=== PATIENT | female | born 1965 | race African-American/Black ===

== ENCOUNTER 2016-11-26 14:35 | Outpatient (CLI) | payer MEDICARE ==
[~2016-11-26 14:35] MED LIST: Acetaminophen PO; BUPR1PAT3 TP; CIPR500T94 PO; CLON0.5T PO; DICL100G7 TP; DOCU-27 PO; FENT1PAT13 TD; GABA-586 PO; HYDR-971 PO; LEVO500T38 PO; MELO-150 PO; MELO15TA6 PO; OMEP20TA63 PO; OXYC-323 PO; OXYC5TAB PO; Oxycodone Hcl/Acetaminophen PO; POLY17PO5 PO; PREG75CA PO; Sennosides/Docusate Sodium PO; TIZA4TAB PO; ZOLP5TAB PO; [UNRECOGNIZED DRUG - OTHER]
[2016-11-26] MEDS ORDERED: GADOBUTROL 7.5 MMOL/7.5 ML VIAL IV ONE (16:45)
[2016-11-26 16:55] VITALS: BP 122/86
--- NOTE | 2016-11-26 17:16 | RAD ---
Examination: MRI of the pelvis without and with IV contrast HISTORY History of osteomyelitis, diabetic ulcer COMPARISON 10/14/2015. TECHNIQUE Multiplanar, multisequence MR imaging of the pelvis were performed without and with IV contrast. IV contrast given was 7.5 cc of Gadavist. Findings : There is a large ulcer/sinus tract identified in the mid gluteal region with T2 signal extending along the ulcer and abutting the distal portion of the sacrum with mild increased edema identified in the resected sacrum, particularly in the right this is slightly increased compared to prior exam.On the postcontrast images there is mild enhancement about the distal portion of the ulcer abutting the sacrum, similar to prior exam. There is another ulcer/sinus tract identified in the left posterior proximal thigh region extending towards the left ischium. There is decreased T1 signal identified in the left ischium with mild high T2 signal within left ischium extending into the left posterior acetabulum. There is a increased T2 signal identified along the ulcer. On the post-contrast images there is mild enhancement identified along the ulcer up to the level of the left ischium. The lower sacrum and coccyx are not visualized probably prior surgical changes or chronic destruction. There is a large nonenhancing complex appearing soft tissue with peripheral enhancement identified just lateral to the greater trochanter on the right similar to prior exam. Lower quadrant ostomy changes identified. Surgical clips identified in the lower pelvis region. IMPRESSION 1. Low T1 signal with corresponding high T2 signal identified in the left ischium including the posterior left acetabulum grossly appears similar to prior exam likely known osteomyelitis, unchanged compared to prior exam 2015. An ulcer/sinus tract is seen extending from the skin to the left ischium similar to prior exam. 2. Large mid gluteal ulcer/sinus tract identified extending towards the sacrum. Compared to the prior exam there is minimal increased T2 signal around the sacral ulcer with mild edema in the sacrum. Recommend triphasic bone scan for further evaluation of the sacrum including the pelvis to include the left ischium to exclude osteomyelitis. 3. Large peripherally enhancing soft tissue identified lateral to the right greater trochanter is unchanged likely chronic infection or inflammation or chronic organized hematoma or chronic bursitis grossly similar to prior exam. Electronically signed by: Rigo Alves (Nov 26, 2016 17:15:22)
== END 2016-11-26 17:20 | disposition home or self-care (01) ==
LOC: MRI 14:35
PROVIDERS: ATTEND Preventive Medicine Undersea and Hyperbaric Medicine
DX: S31.000A Unspecified open wound of lower back and pelvis without penetration into retroperitoneum, initial encounter (principal)
CPT/HCPCS: 72197; A9585

== ENCOUNTER 2016-12-27 04:06 | Emergency (ER) | payer MEDICARE ==
[~2016-12-27] VITALS: Ht 104.1 cm; Wt 74.8 kg
[2016-12-27 04:15] VITALS: BP 141/101
[2016-12-27] MEDS ORDERED: HYDR25TA PO (04:38)
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
[2016-12-27] MEDS ORDERED: LORAZEPAM 1 MG TABLET. PO ONE (05:00)
[2016-12-27] MEDS ORDERED: HYDROMORPHONE 2 MG/ML VIAL. IM ONE (05:00)
== END 2016-12-27 05:31 | disposition home or self-care (01) ==
LOC: ER 04:06
DX: F41.0 Panic disorder [episodic paroxysmal anxiety] (principal); G89.29 Other chronic pain; E11.9 Type 2 diabetes mellitus without complications; E78.00 Pure hypercholesterolemia, unspecified; G82.20 Paraplegia, unspecified; Z91.041 Radiographic dye allergy status; Z88.8 Allergy status to other drugs, medicaments and biological substances
CPT/HCPCS: 96372; 99284; J1170; 99283-25

== ENCOUNTER 2016-12-30 11:14 | Emergency (ER) | payer MEDICARE ==
[~2016-12-30 11:14] MED LIST changes: +HYDR25TA PO
[2016-12-30 11:35] VITALS: BP 125/66
[2016-12-30] MEDS ORDERED: LORAZEPAM 1 MG TABLET. PO ONE (12:45)
[2016-12-30] MEDS ORDERED: LORA0.5T96 PO (13:23)
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
== END 2016-12-30 13:29 | disposition home or self-care (01) ==
LOC: ER 11:14
DX: F41.9 Anxiety disorder, unspecified (principal); Z88.5 Allergy status to narcotic agent; Z88.8 Allergy status to other drugs, medicaments and biological substances; Z91.041 Radiographic dye allergy status
CPT/HCPCS: 99284

== ENCOUNTER → 2017-01-01 | Outpatient (CLI) | payer MEDICARE ==
[2016-12-30 11:35] VITALS: BP 125/66
[~2017-01-01] MED LIST changes: +LORA0.5T96 PO
== END | disposition home or self-care (01) ==
LOC: PMGWOUND 10:01
PROVIDERS: ATTEND Emergency Medicine Undersea and Hyperbaric Medicine
DX: L89.154 Pressure ulcer of sacral region, stage 4 (principal); L89.324 Pressure ulcer of left buttock, stage 4; E11.9 Type 2 diabetes mellitus without complications; M19.90 Unspecified osteoarthritis, unspecified site; F41.9 Anxiety disorder, unspecified; G82.20 Paraplegia, unspecified; F17.210 Nicotine dependence, cigarettes, uncomplicated; Z72.89 Other problems related to lifestyle; Z89.612 Acquired absence of left leg above knee; Z89.611 Acquired absence of right leg above knee; Z86.14 Personal history of Methicillin resistant Staphylococcus aureus infection
CPT/HCPCS: 99214; G0463

== ENCOUNTER → 2017-01-29 | Outpatient (CLI) | payer MEDICARE ==
[2016-12-30 11:35] VITALS: BP 125/66
[~2017-01-29] MED LIST changes: +POLY17PO29 PO; -POLY17PO5 PO
== END | disposition home or self-care (01) ==
LOC: PMGWOUND 10:48
PROVIDERS: ATTEND Preventive Medicine Undersea and Hyperbaric Medicine
DX: L89.224 Pressure ulcer of left hip, stage 4 (principal); L89.154 Pressure ulcer of sacral region, stage 4; E11.69 Type 2 diabetes mellitus with other specified complication; F41.9 Anxiety disorder, unspecified; M19.90 Unspecified osteoarthritis, unspecified site; E78.00 Pure hypercholesterolemia, unspecified; Z72.89 Other problems related to lifestyle; F17.210 Nicotine dependence, cigarettes, uncomplicated; Z86.14 Personal history of Methicillin resistant Staphylococcus aureus infection; M86.68 Other chronic osteomyelitis, other site; Z89.612 Acquired absence of left leg above knee; Z89.611 Acquired absence of right leg above knee
CPT/HCPCS: 99215

== ENCOUNTER → 2017-06-14 | Outpatient (CLI) | payer MEDICARE ==
[~2017-06-14] MED LIST changes: -BUPR1PAT3 TP; +BUPR1PAT6 TP; +DICL100G18 TP; -DICL100G7 TP; +DOCU-109 PO; -DOCU-27 PO; -LEVO500T38 PO; +LEVO500T59 PO; -MELO-150 PO; +MELO15TA23 PO; -OXYC5TAB PO; +OXYC5TAB95 PO
--- NOTE | 2017-06-14 15:33 | RAD ---
DATE: 06/14/2017. EXAM: DIGITAL SCREEN BILAT W/CAD. HISTORY: Routine mammographic screening. COMPARISON: None available. This is interpreted as a baseline study.. This study was interpreted with the benefit of Computerized Aided Detection (CAD). FINDINGS: The breast parenchyma is primarily fatty replaced. Breast parenchyma level density A.. There are no suspicious masses, microcalcifications or architectural distortion. Scattered calcifications bilaterally and a rim calcified low cyst on the right are benign. BI-RADS CATEGORY: 2 BENIGN FINDING(S). RECOMMENDED FOLLOW-UP: 12M 12 MONTH FOLLOW-UP. PQRS compliance statement: Patient information was entered into a reminder system with a target due date 06/14/2018 for the next mammogram. Mammography is a sensitive method for finding small breast cancers, but it does not detect them all and is not a substitute for careful clinical examination. A negative mammogram does not negate a clinically suspicious finding and should not result in delay in biopsying a clinically suspicious abnormality. "Our facility is accredited by the [employer] Mammography [employer]."
== END | disposition home or self-care (01) ==
LOC: MAMMO 14:21
PROVIDERS: ATTEND Physician Assistant Surgical
DX: Z12.31 Encounter for screening mammogram for malignant neoplasm of breast (principal)
CPT/HCPCS: G0202; 77067

== ENCOUNTER → 2018-05-17 | Outpatient (CLI) | payer MEDICARE ==
--- NOTE | 2018-05-17 15:59 | RAD ---
UPPER EXT JOINT WO CONT RIGHT dated 05/17/2018 3:30 PM Indication: RIGHT SHOULDER PAIN. Hx RIGHT ROTATOR CUFF TEAR/REPAIR. PRIOR MRI , pain . History of tear Comparison: 11/15 2014. Technique: Routine multiplanar multisequence imaging performed. . Findings: Study is limited due to motion artifact. There is evidence of prior subacromial decompression and rotator cuff repair. There is intermediate T2 signal throughout the supraspinatus and infraspinatus portions of the rotator cuff. There is a recurrent full-thickness tear involving the anterior supraspinatus footplate that measures approximately 1.7 x 2.1 cm. The torn portion of the cuff is retracted to about the 12:00 position. The posterior supraspinatus and infraspinatus are grossly intact. There is probable full-thickness involvement of the upper margin of the subscapularis. Posterior lateral changes of the AC joint. Small amount of subacromial/subdeltoid bursal fluid. Acromion type II morphology. No significant undersurface spurring. Intermediate T2 signal within the proximal long head biceps tendon. The extra articular portion courses within the bicipital groove. Biceps anchor is not well evaluated. Glenoid labrum is not well visualized due to motion and poor signal. There is blunted morphology of the posterior superior labrum and anterior inferior labrum with thinning of the glenoid articular cartilage. No apparent joint effusion or loose body. Suprascapular and spinoglenoid notches are clear. There is mild fatty atrophy of the supraspinatus and infraspinatus muscles. No significant muscle edema. IMPRESSION: 1. Status post subacromial decompression and rotator cuff repair. There is a moderate size recurrent full-thickness tear of the anterior supraspinatus footplate. 2. 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 3. Mild biceps tendinopathy. Electronically signed by: Josiah Grace MD (05/17/2018 3:56 PM) [id number]
--- NOTE | 2018-05-18 09:21 | RAD ---
DATE: 05/17/2018 EXAM: DIGITAL SCREEN BILAT W/CAD HISTORY: Routine screening COMPARISON: 06/14/2017 This study was interpreted with the benefit of Computerized Aided Detection (CAD). The breast parenchyma is primarily fatty replaced. Breast parenchyma level density A. FINDINGS: No new or enlarging breast densities are seen. Benign type calcifications are again noted. No suspicious microcalcifications have developed. IMPRESSION: Stable mammograms without evidence of malignancy. BI-RADS CATEGORY: 2 BENIGN FINDING(S) RECOMMENDED FOLLOW-UP: 12M 12 MONTH FOLLOW-UP PQRS compliance statement: Patient information was entered into a reminder system with a target due date for the next mammogram. Mammography is a sensitive method for finding small breast cancers, but it does not detect them all and is not a substitute for careful clinical examination. A negative mammogram does not negate a clinically suspicious finding and should not result in delay in biopsying a clinically suspicious abnormality. "Our facility is accredited by the [employer] Mammography Program."
== END | disposition home or self-care (01) ==
LOC: MAMMO 13:29
PROVIDERS: ATTEND Physician Assistant Surgical
DX: Z12.31 Encounter for screening mammogram for malignant neoplasm of breast (principal); Z98.890 Other specified postprocedural states; M19.111 Post-traumatic osteoarthritis, right shoulder; M94.211 Chondromalacia, right shoulder; M75.21 Bicipital tendinitis, right shoulder; I10 Essential (primary) hypertension; E11.9 Type 2 diabetes mellitus without complications; E87.6 Hypokalemia; E78.00 Pure hypercholesterolemia, unspecified; Z89.611 Acquired absence of right leg above knee; Z89.612 Acquired absence of left leg above knee; Z90.710 Acquired absence of both cervix and uterus; Z88.5 Allergy status to narcotic agent; Z88.8 Allergy status to other drugs, medicaments and biological substances; Z82.49 Family history of ischemic heart disease and other diseases of the circulatory system
CPT/HCPCS: 73221; 77067